=== PATIENT | male | born 1930 | race Caucasian/White ===

== ENCOUNTER 2016-09-25 15:46 | Emergency (ER) | payer MEDICARE, OTHER ==
[2016-09-25] MEDS ORDERED: Acetaminophen 325 MG Tab PO ONE (16:05)
[2016-09-25] MEDS ORDERED: Sodium Chloride 0.9% 1,000 ML IV SCH (16:15)
--- NOTE | 2016-09-25 18:23 | EDM.PDOC ---
<Disha Strickland - Last Filed: 09/25/16 18:54> ED HPI GENERAL MEDICAL PROBLEM - General Chief Complaint: General Stated Complaint: MED VIA [facility] Time Seen by Provider: 09/25/16 15:55 Source of Information: Reports: Patient, Family History Limitations: Reports: No Limitations - History of Present Illness INITIAL COMMENTS - FREE TEXT/NARRATIVE: pt spiked a high fever and was very vague in answering questions. Onset: Today, Sudden Duration: Hour(s):, Getting Worse Location: Reports: Generalized, Other (pt complained of severe back pain) Quality: Reports: Ache Severity: Moderate Associated Symptoms: Reports: Fever/Chills, Malaise Back Pain Score (Numeric/FACES): 5 - Related Data Allergies Allergy/AdvReac Type Severity Reaction Status Date / Time captopril [From Capoten] Allergy Cannot Verified 09/25/16 16:27 Remember msg Allergy Headache Uncoded 04/17/14 10:13 Home Meds: Home Meds Atenolol [Tenormin] 25 mg PO DAILY 04/17/14 [History] amLODIPine Besylate [Amlodipine Besylate] 10 mg PO DAILY 04/17/14 [History] clonazePAM [Clonazepam] 0.5 mg PO ASDIRECTED PRN 04/17/14 [History] Doxycycline [Vibra-Tabs] 100 mg PO BID 09/25/16 [History] Finasteride [Finasteride] 5 mg PO DAILY 09/25/16 [History] Gluc 2KCl/Chondr/Butch Hy/Hy Ac [Glucosamine & Chondroitin Cap] 1 tab PO DAILY [History] Magnesium 200 mg PO DAILY 09/25/16 [History] Methocarbamol [Robaxin] 750 mg PO QID PRN 09/25/16 [History] Pravastatin [Pravachol] 20 mg PO DAILY 09/25/16 [History] Tamsulosin [Tamsulosin 24 Hr] 0.4 mg PO DAILY 09/25/16 [History] Vitamin B Complex [B Complex] 1 tab PO DAILY 09/25/16 [History] Warfarin Sodium 5 mg PO ASDIRECTED 09/25/16 [History] Past Medical History HEENT History: Reports: Hard of Hearing, Impaired Vision Cardiovascular History: Reports: Afib, Hypertension Genitourinary History: Reports: BPH Musculoskeletal History: Reports: Arthritis, Back Pain, Chronic Neurological History: Reports: TIA - Past Surgical History HEENT Surgical History: Reports: Cataract Surgery Social & Family History - Tobacco Use Smoking Status *Q: Never Smoker - Caffeine Use Caffeine Use: Reports: None - Alcohol Use Days Per Week of Alcohol Use: 0 - Recreational Drug Use Recreational Drug Use: No ED ROS GENERAL - Review of Systems Review Of Systems: See Below Constitutional: Reports: Fever, Chills, Malaise HEENT: Reports: No Symptoms Respiratory: Reports: No Symptoms Cardiovascular: Reports: No Symptoms Endocrine: Reports: No Symptoms GI/Abdominal: Reports: No Symptoms : Reports: No Symptoms Musculoskeletal: Reports: Back Pain, Other (pt had a marked increase in his back pain. ) Skin: Reports: No Symptoms Neurological: Reports: No Symptoms ED EXAM, GENERAL - Physical Exam Exam: See Below Free Text/Narrative:: pt arrived with shaking chills and was very vague with his answers. Exam Limited By: No Limitations General Appearance: Alert, Anxious, Mild Distress Ears: Normal TMs Nose: Normal Inspection Throat/Mouth: Normal Inspection Head: Atraumatic Neck: Normal Inspection Respiratory/Chest: No Respiratory Distress Cardiovascular: Regular Rate, Rhythm, Tachycardia GI/Abdominal: Soft, Non-Tender (Male) Exam: Deferred Rectal (Males) Exam: Deferred Back Exam: Normal Inspection Extremities: Normal Inspection Psychiatric: Normal Affect Course - Vital Signs Last Recorded V/S: Last Vital Signs Temp 37.2 C 09/25/16 20:00 Pulse 62 09/25/16 20:00 Resp 14 09/25/16 20:00 BP 99/72 09/25/16 20:00 Pulse Ox 93 L 09/25/16 20:00 - Orders/Labs/Meds Orders: Active Orders 24 hr Category Date Time Status Abdomen Pelvis wo Cont [CT] Stat Exams 09/25/16 20:51 Taken BABESIA MICROTI IGG AND IGM [REF] Stat Lab 09/25/16 16:24 Received CULTURE BLOOD [BC] Urgent Lab 09/25/16 16:24 Received CULTURE BLOOD [BC] Urgent Lab 09/25/16 16:24 Received CULTURE URINE [RM] Stat Lab 09/25/16 19:00 Received EHRLICHIA CHAFFEENSIS, IGG&IGM [REF] Stat Lab 09/25/16 16:24 Received LYME AB SCREEN RFLX [REF] Stat Lab 09/25/16 16:24 Received Lactated Ringers [Ringers, Lactated] 1,000 ml Med 09/25/16 21:30 Active IV ASDIRECTED Blood Culture x2 Reflex Set [OM.PC] Urgent Oth 09/25/16 16:03 Ordered Medication Orders Lactated Ringer's (Ringers, Lactated) 1,000 mls @ 250 mls/hr IV ASDIRECTED SAM Last Admin: 09/25/16 21:53 Dose: 250 mls/hr Labs: Laboratory Tests 09/25/16 09/25/16 09/25/16 Range/Units 16:24 16:24 18:47 WBC 5.6 (4.5-11.0) K/uL RBC 5.52 (4.30-5.90) M/uL Hgb 16.8 H (12.0-15.0) g/dL Hct 49.0 (40.0-54.0) % MCV 89 (80-98) fL MCH 30 (27-31) pg MCHC 34 (32-36) % Plt Count 113 L (150-400) K/uL Neut % (Auto) 71 H (36-66) % Lymph % (Auto) 19 L (24-44) % [place] % (Auto) 9 H (2-6) % Eos % (Auto) 0 L (2-4) % Baso % (Auto) 1 (0-1) % PT 21.9 H (9.5-12.0) sec INR 1.99 H (0.80-1.20) ABG Hemoglobin (13.5-18.0) g/dL ABG Oxyhemoglobin % ABG Carboxyhemoglobin (0.0-1.6) % ABG Methemoglobin % VBG pH (7.350-7.450) VBG pCO2 mm/Hg VBG pO2 mm/Hg VBG HCO3 mmol/L VBG Total CO2 mmol/L VBG O2 Saturation VBG O2 Content %vol VBG Base Excess mm/L O2 Delivery Device Sodium 138 L (140-148) mmol/L Potassium 3.8 (3.6-5.2) mmol/L Chloride 103 (100-108) mmol/L Carbon Dioxide 23 (21-32) mmol/L Anion Gap 15.8 H (5.0-14.0) mmol/L BUN 12 (7-18) mg/dL Creatinine 1.1 (0.8-1.3) mg/dL Est Cr Clr Drug Dosing 46.64 mL/min Estimated GFR (MDRD) > 60 (>60) Glucose 140 H (74-106) mg/dL Lactic Acid (0.4-2.0) mmol/L Calcium 8.6 (8.5-10.1) mg/dL Total Bilirubin 0.8 (0.2-1.0) mg/dL AST 34 (15-37) U/L ALT 32 (12-78) U/L Alkaline Phosphatase 102 (46-116) U/L Total Protein 7.3 (6.4-8.2) g/dL Albumin 3.7 (3.4-5.0) g/dL Globulin 3.6 H (2.3-3.5) g/dL Albumin/Globulin Ratio 1.0 L (1.2-2.2) Urine Color Urine Appearance Urine pH (4.5-8.0) Ur Specific [place] (1.008-1.030) Urine Protein (NEGATIVE) mg/dL Urine Glucose (UA) (NEGATIVE) mg/dL Urine Ketones (NEGATIVE) mg/dL Urine Occult Blood (NEGATIVE) Urine Nitrite (NEGAITVE) Urine Bilirubin (NEGATIVE) Urine Urobilinogen (NORMAL) mg/dL Ur Leukocyte Esterase (NEGATIVE) Urine RBC (0-5) Urine WBC (0-5) Ur Epithelial Cells Amorphous Sediment Urine Bacteria Urine Mucus 09/25/16 09/25/16 09/25/16 Range/Units 19:11 20:39 20:39 WBC (4.5-11.0) K/uL RBC (4.30-5.90) M/uL Hgb (12.0-15.0) g/dL Hct (40.0-54.0) % MCV (80-98) fL MCH (27-31) pg MCHC (32-36) % Plt Count (150-400) K/uL Neut % (Auto) (36-66) % Lymph % (Auto) (24-44) % [place] % (Auto) (2-6) % Eos % (Auto) (2-4) % Baso % (Auto) (0-1) % PT (9.5-12.0) sec INR (0.80-1.20) ABG Hemoglobin 14.7 (13.5-18.0) g/dL ABG Oxyhemoglobin 92.7 % ABG Carboxyhemoglobin 1.3 (0.0-1.6) % ABG Methemoglobin 0.5 % VBG pH 7.434 (7.350-7.450) VBG pCO2 32.8 mm/Hg VBG pO2 68.0 mm/Hg VBG HCO3 21.6 mmol/L VBG Total CO2 18.7 mmol/L VBG O2 Saturation 94.4 VBG O2 Content 19.1 %vol VBG Base Excess -1.4 mm/L O2 Delivery Device Room air Sodium (140-148) mmol/L Potassium (3.6-5.2) mmol/L Chloride (100-108) mmol/L Carbon Dioxide (21-32) mmol/L Anion Gap (5.0-14.0) mmol/L BUN (7-18) mg/dL Creatinine (0.8-1.3) mg/dL Est Cr Clr Drug Dosing mL/min Estimated GFR (MDRD) (>60) Glucose (74-106) mg/dL Lactic Acid 1.3 (0.4-2.0) mmol/L Calcium (8.5-10.1) mg/dL Total Bilirubin (0.2-1.0) mg/dL AST (15-37) U/L ALT (12-78) U/L Alkaline Phosphatase (46-116) U/L Total Protein (6.4-8.2) g/dL Albumin (3.4-5.0) g/dL Globulin (2.3-3.5) g/dL Albumin/Globulin Ratio (1.2-2.2) Urine Color Yellow Urine Appearance Clear Urine pH 6.0 (4.5-8.0) Ur Specific [place] 1.010 (1.008-1.030) Urine Protein 30 H (NEGATIVE) mg/dL Urine Glucose (UA) Normal (NEGATIVE) mg/dL Urine Ketones 50 H (NEGATIVE) mg/dL Urine Occult Blood Moderate (NEGATIVE) Urine Nitrite Negative (NEGAITVE) Urine Bilirubin Negative (NEGATIVE) Urine Urobilinogen Normal (NORMAL) mg/dL Ur Leukocyte Esterase Negative (NEGATIVE) Urine RBC 10-20 H (0-5) Urine WBC 5-10 H (0-5) Ur Epithelial Cells Rare Amorphous Sediment Not seen Urine Bacteria Few Urine Mucus Moderate Meds: Medications Generic Name Dose Route Start Last Admin Trade Name Freq PRN Reason Stop Dose Admin Lactated Ringer's 1,000 mls @ 250 mls/hr 09/25/16 21:30 09/25/16 21:53 Ringers, Lactated IV 250 mls/hr ASDIRECTED SAM Administration Discontinued Medications Generic Name Dose Route Start Last Admin Trade Name Freq PRN Reason Stop Dose Admin Acetaminophen 650 mg 09/25/16 16:05 09/25/16 16:28 Tylenol PO 09/25/16 16:06 650 mg NOW ONE Administration Hydromorphone HCl 0.5 mg 09/25/16 18:53 09/25/16 19:12 Dilaudid IVPUSH 09/25/16 18:54 0.5 mg ONETIME ONE Administration Sodium Chloride 1,000 mls @ 300 mls/hr 09/25/16 16:15 09/25/16 17:38 Normal Saline IV 300 mls/hr ASDIRECTED SAM Administration Potassium Chloride/Dextrose/Sod Cl 1,000 mls @ 500 mls/hr 09/25/16 20:30 D5 1/2 Ns W/ 20 Meq/L Kcl IV ASDIRECTED SAM Doxycycline Hyclate 100 mg/ 100 mls @ 100 mls/hr 09/25/16 20:35 09/25/16 21: 55 Sodium Chloride IV 09/25/16 21:34 Not Given ONETIME ONE - Re-Assessments/Exams Free Text/Narrative Re-Assessment/Exam: 09/25/16 18:54 pt has a low wbc and platlets. He did have a tick bite about 2 weeks ago. He has a history of back pain and his pain is very severe at this time. At this point he has severe back pain. Departure - Departure Disposition: Home, Self-Care 01 Clinical Impression: Fever Qualifiers: Fever type: unspecified Qualified Code(s): R50.9 - Fever, unspecified - Discharge Information Referrals: Nikunj Salvador MD [Primary Care Provider] - Forms: ED Department Discharge Additional Instructions: As discussed go ahead and continue with your antibiotics and try to make appointment with your primary care doctor early this next week or later this week and if you become quite ill again he'll need to return to the ER for another evaluation. Lab work on your tick testing is pending - My Orders Last 24 Hours: My Active Orders 09/25/16 19:00 CULTURE URINE [RM] Stat 09/25/16 20:51 Abdomen Pelvis wo Cont [CT] Stat 09/25/16 21:30 Lactated Ringers [Ringers, Lactated] 1,000 ml IV ASDIRECTED - Assessment/Plan Last 24 Hours: My Active Orders 09/25/16 19:00 CULTURE URINE [RM] Stat 09/25/16 20:51 Abdomen Pelvis wo Cont [CT] Stat 09/25/16 21:30 Lactated Ringers [Ringers, Lactated] 1,000 ml IV ASDIRECTED <Bashir Wiseman - Last Filed: 09/25/16 22:17> ED HPI GENERAL MEDICAL PROBLEM - History of Present Illness INITIAL COMMENTS - FREE TEXT/NARRATIVE: Abdominal pelvic CT was ordered and unremarkable for any explanation for his symptoms are presentation. He feels well his fevers gone he like to go home and so we will discharge him he already was given a prescription for doxycycline 100 mg twice a day for 10 days he will take that and will follow-up with his primary care doctor later this week or early next week to see how he is doing. Departure - Departure Time of Disposition: 22:16 Condition: Good
[2016-09-25] MEDS ORDERED: HYDROmorphone 1 MG/ML Syringe IVPUSH ONE (18:53)
[2016-09-25 20:01] VITALS: BP 99/72
[2016-09-25] MEDS ORDERED: D5 1/2 NS w/ 20 mEq/L KCl 1,000 ML IV SCH (20:30)
[2016-09-25] MEDS ORDERED: Doxycycline 100 MG in Sodium Chloride 0.9% 100 ML IV ONE (20:35)
[2016-09-25] MEDS ORDERED: Lactated Ringers 1,000 ML IV SCH (21:30)
== END 2016-09-25 22:41 | disposition home or self-care (01) ==
LOC: JP.ED 15:46
DX: R50.9 Fever, unspecified (principal); M54.9 Dorsalgia, unspecified; D72.819 Decreased white blood cell count, unspecified; D69.6 Thrombocytopenia, unspecified; R53.81 Other malaise; I48.91 Unspecified atrial fibrillation; I10 Essential (primary) hypertension; Z86.73 Personal history of transient ischemic attack (TIA), and cerebral infarction without residual deficits; Z79.899 Other long term (current) drug therapy
CPT/HCPCS: 36415; 74176; 80053; 81001; 82803; 83605; 85025; 85610; 86618; 86666; 86753; 87040; 87086; A9270; J1170; J7040; J7120; 96361; 96365; 96375; 99284; 99284-25

== ENCOUNTER 2017-03-01 20:07 | Emergency (ER) | payer MEDICARE, OTHER ==
[2017-03-01] MEDS ORDERED: Acetaminophen 325 MG Tab PO ONE (21:00)
[2017-03-01] MEDS ORDERED: Ondansetron 4 MG Tab.DIS PO ONE (21:00)
--- NOTE | 2017-03-01 21:03 | EDM.PDOC ---
ED HPI GENERAL MEDICAL PROBLEM - General Chief Complaint: Gastrointestinal Problem Stated Complaint: ILLNESS AFTER SURGERY Time Seen by Provider: 03/01/17 20:53 Source of Information: Reports: Patient, Family, RN Notes Reviewed History Limitations: Reports: No Limitations - History of Present Illness INITIAL COMMENTS - FREE TEXT/NARRATIVE: 87-year-old gentleman presents emergency department today with complaint of nausea vomiting and fever, he recently underwent cystoscopy yesterday states he had a difficult procedure last about an hour he's not sure when the fever started today he's been feeling ill had one episode of nausea and vomiting, admits to having wheezing symptomology and feeling short of breath Generalized Pain Score (Numeric/FACES): 6 - Related Data Allergies Allergy/AdvReac Type Severity Reaction Status Date / Time captopril [From Capoten] Allergy Cannot Verified 03/01/17 20:33 Remember monosodium glutamate AdvReac Headache Verified 03/01/17 20:33 Home Meds: Home Meds amLODIPine Besylate [Amlodipine Besylate] 10 mg PO DAILY 04/17/14 [History] clonazePAM [Clonazepam] 0.5 mg PO ASDIRECTED PRN 04/17/14 [History] Finasteride [Finasteride] 5 mg PO DAILY 09/25/16 [History] Gluc 2KCl/Chondr/Butch Hy/Hy Ac [Glucosamine & Chondroitin Cap] 1 tab PO DAILY [History] Magnesium 200 mg PO DAILY 09/25/16 [History] Methocarbamol [Robaxin] 750 mg PO QID PRN 09/25/16 [History] Pravastatin [Pravachol] 20 mg PO DAILY 09/25/16 [History] Tamsulosin [Tamsulosin 24 Hr] 0.4 mg PO DAILY 09/25/16 [History] Vitamin B Complex [B Complex] 1 tab PO DAILY 09/25/16 [History] Warfarin Sodium 5 mg PO ASDIRECTED 09/25/16 [History] Past Medical History HEENT History: Reports: Hard of Hearing, Impaired Vision Cardiovascular History: Reports: Afib, Hypertension Genitourinary History: Reports: BPH Musculoskeletal History: Reports: Arthritis, Back Pain, Chronic Neurological History: Reports: TIA - Infectious Disease History Infectious Disease History: Reports: Chicken Pox, Measles, Mumps - Past Surgical History HEENT Surgical History: Reports: Cataract Surgery Cardiovascular Surgical History: Reports: None Male Surgical History: Reports: Cystectomy, Renal Calculus Social & Family History - Tobacco Use Smoking Status *Q: Never Smoker Second Hand Smoke Exposure: No - Caffeine Use Caffeine Use: Reports: Soda - Alcohol Use Days Per Week of Alcohol Use: 0 - Recreational Drug Use Recreational Drug Use: No ED ROS GENERAL - Review of Systems Review Of Systems: See Below Constitutional: Reports: Fever, Chills HEENT: Reports: No Symptoms Respiratory: Reports: Shortness of Breath, Wheezing. Denies: Cough, Sputum Cardiovascular: Reports: No Symptoms GI/Abdominal: Reports: No Symptoms : Reports: No Symptoms Musculoskeletal: Reports: No Symptoms Skin: Reports: No Symptoms Neurological: Reports: No Symptoms ED EXAM, RENAL/ - Physical Exam Exam: See Below Text/Narrative:: General: Male, not in any distress, alert and oriented x3 HEENT: head is atraumatic normocephalic, eyes pupils equal round reactive to light, sclera clear no conjunctivitis appreciated. Ears tympanic membranes clear and [place] landmarks and light reflex are present bilaterally canals are clear. Nose no septal deviation, nares are clear, no blood present. Mouth mucosa is moist and pink no erythema or exudate noted in soft palate, tongue is midline uvula is midline, dentition is intact. Neck: Supple no thyromegaly no tracheal deviation. Nodes: Cervical nodes subclavicular nodes nontender no palpable lymphadenopathy noted. Lungs: clear to auscultation bilaterally with symmetrical respirations, no adventitious noise appreciated. CV: Irregularly irregular rate and rhythm S1 and S2 appreciated no murmurs rubs or gallops noted. Abdomen: Soft, nontender, no palpable masses or organomegaly appreciated, no distention no guarding bowel sounds are present, . Neuro: Cranial nerves II through XII grossly intact Skin: Warm and dry, intact Extremities: +1 pitting edema bilaterally Course - Vital Signs Last Recorded V/S: Last Vital Signs Temp 100.4 F 03/01/17 22:16 Pulse 83 03/01/17 22:16 Resp 23 H 03/01/17 22:16 BP 167/79 H 03/01/17 22:16 Pulse Ox 91 L 03/01/17 22:16 - Orders/Labs/Meds Orders: Active Orders 24 hr Category Date Time Status Chest 2V [CR] Urgent Exams 03/01/17 20:59 Taken Azithromycin [Zithromax] Med 03/01/17 22:33 Stat 500 mg PO NOW STA cefTRIAXone 1 GM,Lidocaine 1% 2.1 ML Med 03/01/17 22:33 Ordered cefTRIAXone [Rocephin] 1 gm Lidocaine 1% [Xylocaine-MPF 1%] 2.1 ml IM ONETIME Labs: Laboratory Tests 03/01/17 03/01/17 03/01/17 Range/Units 21:08 21:08 21:08 WBC 11.8 H (4.5-11.0) K/uL RBC 4.86 (4.30-5.90) M/uL Hgb 14.5 D (12.0-15.0) g/dL Hct 43.2 (40.0-54.0) % MCV 89 (80-98) fL MCH 30 (27-31) pg MCHC 34 (32-36) % Plt Count 168 (150-400) K/uL Neut % (Auto) 87 H (36-66) % Lymph % (Auto) 7 L (24-44) % [place] % (Auto) 5 (2-6) % Eos % (Auto) 1 L (2-4) % Baso % (Auto) 0 (0-1) % Sodium 138 L (140-148) mmol/L Potassium 4.3 (3.6-5.2) mmol/L Chloride 104 (100-108) mmol/L Carbon Dioxide 22 (21-32) mmol/L Anion Gap 16.3 H (5.0-14.0) mmol/L BUN 19 H D (7-18) mg/dL Creatinine 1.2 (0.8-1.3) mg/dL Est Cr Clr Drug Dosing 41.96 mL/min Estimated GFR (MDRD) 57 L (>60) Glucose 132 H (74-106) mg/dL Lactic Acid 2.0 (0.4-2.0) mmol/L Calcium 8.8 (8.5-10.1) mg/dL Total Bilirubin 0.5 (0.2-1.0) mg/dL AST 23 (15-37) U/L ALT 25 (12-78) U/L Alkaline Phosphatase 93 (46-116) U/L Total Protein 6.8 (6.4-8.2) g/dL Albumin 3.3 L (3.4-5.0) g/dL Globulin 3.5 (2.3-3.5) g/dL Albumin/Globulin Ratio 0.9 L (1.2-2.2) Urine Color Urine Appearance Urine pH (4.5-8.0) Ur Specific [place] (1.008-1.030) Urine Protein (NEGATIVE) mg/dL Urine Glucose (UA) (NEGATIVE) mg/dL Urine Ketones (NEGATIVE) mg/dL Urine Occult Blood (NEGATIVE) Urine Nitrite (NEGAITVE) Urine Bilirubin (NEGATIVE) Urine Urobilinogen (NORMAL) mg/dL Ur Leukocyte Esterase (NEGATIVE) Urine RBC (0-5) Urine WBC (0-5) Ur Epithelial Cells Amorphous Sediment Urine Bacteria Urine Mucus 03/01/17 Range/Units 21:51 WBC (4.5-11.0) K/uL RBC (4.30-5.90) M/uL Hgb (12.0-15.0) g/dL Hct (40.0-54.0) % MCV (80-98) fL MCH (27-31) pg MCHC (32-36) % Plt Count (150-400) K/uL Neut % (Auto) (36-66) % Lymph % (Auto) (24-44) % [place] % (Auto) (2-6) % Eos % (Auto) (2-4) % Baso % (Auto) (0-1) % Sodium (140-148) mmol/L Potassium (3.6-5.2) mmol/L Chloride (100-108) mmol/L Carbon Dioxide (21-32) mmol/L Anion Gap (5.0-14.0) mmol/L BUN (7-18) mg/dL Creatinine (0.8-1.3) mg/dL Est Cr Clr Drug Dosing mL/min Estimated GFR (MDRD) (>60) Glucose (74-106) mg/dL Lactic Acid (0.4-2.0) mmol/L Calcium (8.5-10.1) mg/dL Total Bilirubin (0.2-1.0) mg/dL AST (15-37) U/L ALT (12-78) U/L Alkaline Phosphatase (46-116) U/L Total Protein (6.4-8.2) g/dL Albumin (3.4-5.0) g/dL Globulin (2.3-3.5) g/dL Albumin/Globulin Ratio (1.2-2.2) Urine Color Red Urine Appearance Turbid Urine pH 5.0 (4.5-8.0) Ur Specific [place] 1.020 (1.008-1.030) Urine Protein 30 H (NEGATIVE) mg/dL Urine Glucose (UA) Normal (NEGATIVE) mg/dL Urine Ketones 15 H (NEGATIVE) mg/dL Urine Occult Blood Large (NEGATIVE) Urine Nitrite Negative (NEGAITVE) Urine Bilirubin Negative (NEGATIVE) Urine Urobilinogen 1 (NORMAL) mg/dL Ur Leukocyte Esterase Small (NEGATIVE) Urine RBC Packed H (0-5) Urine WBC 5-10 H (0-5) Ur Epithelial Cells Few Amorphous Sediment Few Urine Bacteria Rare Urine Mucus Few Meds: Medications Discontinued Medications Generic Name Dose Route Start Last Admin Trade Name Freq PRN Reason Stop Dose Admin Acetaminophen 650 mg 03/01/17 21:00 03/01/17 21:09 Tylenol PO 03/01/17 21:01 650 mg NOW ONE Administration Ondansetron HCl 4 mg 03/01/17 21:00 03/01/17 21:08 Zofran Odt PO 03/01/17 21:01 4 mg ONETIME ONE Administration Departure - Departure Time of Disposition: 22:38 Disposition: Home, Self-Care 01 Condition: Good Clinical Impression: Community acquired pneumonia Qualifiers: Laterality: right Lung location: middle lobe of lung Qualified Code(s): J18.1 - Lobar pneumonia, unspecified organism - Discharge Information Referrals: Nikunj Salvador MD [Primary Care Provider] - Forms: ED Department Discharge Additional Instructions: Take full course of antibiotics, use Tylenol or Motrin as needed to control fever, please follow-up with your primary care provider in the next 3-5 days for reevaluation - My Orders Last 24 Hours: My Active Orders 03/01/17 20:59 Chest 2V [CR] Urgent 03/01/17 22:33 Azithromycin [Zithromax] 500 mg PO NOW STA cefTRIAXone 1 GM,Lidocaine 1% 2.1 ML cefTRIAXone [Rocephin] 1 gm Lidocaine 1% [ Xylocaine-MPF 1%] 2.1 ml IM ONETIME - Assessment/Plan Last 24 Hours: My Active Orders 03/01/17 20:59 Chest 2V [CR] Urgent 03/01/17 22:33 Azithromycin [Zithromax] 500 mg PO NOW STA cefTRIAXone 1 GM,Lidocaine 1% 2.1 ML cefTRIAXone [Rocephin] 1 gm Lidocaine 1% [ Xylocaine-MPF 1%] 2.1 ml IM ONETIME Plan: Assessment Acuity = acute Site and laterality = community-acquired pneumonia complicated in a patient with recent history of cystoscopy as well as atrial fibrillation on chronic anticoagulation Etiology = probable bacterial cause Manifestations = cough, fever Location of injury = Home Lab values = WBC elevated 11.8 consistent with leukocytosis, glucose elevated 132 consistent hyperglycemia albumin low at 3.3 consistent hypoalbuminemia urinalysis reveals 30 of protein consistent proteinuria 15 ketones consistent ketonuria packed rbc's consists with a hematuria and 5-10 wbc's consists with pyuria chest x-ray shows a developing infiltrate right side official read radiology is pending Plan I did review lab work and chest x-ray results with him I offered him hospital admission he declined he would like to try treatment at home first, therefore he was given 1 g Rocephin IM +500 mg of azithromycin prescription written for azithromycin 250 mg by mouth daily for 4 days and Ceftin 500 mg by mouth twice a day 7 days his follow-up with his primary care in 3-5 days if no improvement Patient was in agreement with the plan all questions were answered, they were instructed to return to the emergency department or call for worsening symptoms. This note was dictated using [employer] voice recognition software please call with any questions.
[2017-03-01 22:19] VITALS: BP 167/79
[2017-03-01] MEDS ORDERED: Azithromycin 250 MG Tab PO STA (22:33)
[2017-03-01] MEDS ORDERED: cefTRIAXone 1 GM, Lidocaine 1% 2.1 ML IM ONE ×2 (22:33)
--- NOTE | 2017-03-03 09:28 | CR ---
Two-view chest Findings: There is a infiltrate demonstrated in the right lung base. There is also subtle density of the right upper lobe which may also be involved with infiltrate. The left lung is unremarkable. The h eart and vascular structures are within normal limits. Impression: 1. Right lower lobe pneumonia. Follow-up is recommended to confirm resolution.
== END 2017-03-01 22:56 | disposition home or self-care (01) ==
LOC: JP.ED 20:07
DX: J18.9 Pneumonia, unspecified organism (principal); I10 Essential (primary) hypertension; I48.91 Unspecified atrial fibrillation; Z86.73 Personal history of transient ischemic attack (TIA), and cerebral infarction without residual deficits; Z88.8 Allergy status to other drugs, medicaments and biological substances; Z79.899 Other long term (current) drug therapy; Z79.01 Long term (current) use of anticoagulants
CPT/HCPCS: 36415; 71020; 80053; 81001; 83605; 85025; 96372; 99284; A9270; J0696; 99283